=== PATIENT | male | born 1995 | race Caucasian/White ===

== ENCOUNTER 2018-07-15 10:33 | Emergency (ER) | payer OTHER, SELFPAY ==
--- NOTE | 2018-07-15 11:50 | CT ---
CT BRAIN WITHOUT CONTRAST: HISTORY: Trauma, dizziness and nausea FINDINGS: No evidence of acute infarct, hemorrhage, midline shift or abnormal extra-axial fluid collections is seen. The ventricular size is appropriate and the basilar cisterns are patent. The bony calvarium is intact. The mastoid air cells are well aerated. There is mild mucosal disease in the paranasal sin uses. IMPRESSION: No CT evidence of acute intracranial process.
== END 2018-07-15 12:08 | disposition home or self-care (01) ==
LOC: ERS 10:33
DX: S00.83XA Contusion of other part of head, initial encounter (principal); F32.9 Major depressive disorder, single episode, unspecified; W22.8XXA Striking against or struck by other objects, initial encounter
CPT/HCPCS: 70450